=== PATIENT | female | born 1945 | race Two or more races ===

== ENCOUNTER 2025-07-25 07:53 | Emergency (ER) | payer OTHER ==
[~2025-07-25] VITALS: Ht 165.1 cm; Wt 88.5 kg
[2025-07-25] MEDS ORDERED: LOSARTAN-HCTZ1 EACH PO (08:31)
[2025-07-25] MEDS ORDERED: VERAPAMIL ER180 MG PO (08:31)
[2025-07-25] MEDS ORDERED: DICLOFENAC-MIS1 EAC1 PO (08:32)
[2025-07-25] MEDS ORDERED: CHILDREN'S ASPI81 MG (08:32)
[2025-07-25] MEDS ORDERED: ROSUVASTATIN CAL5 MG PO (08:32)
[2025-07-25] MEDS ORDERED: 0.9 % SODIUM CHLORIDE 1,000 ML IV STA (08:50)
[2025-07-25 09:36] LABS: BASO % 0.1 % (0.1-1.2); EOS # 0.01 (0.04-0.54); EOS % 0.1 % (0.7-7.0); LYMPH # 0.47 (1.18-3.74); LYMPH % 4.6 % (19.3-53.1); MEAN PLATELET VOLUME 11.10 fl (9.4-12.4); MONO # 0.25 (0.24-0.82); MONO % 2.4 % (4.7-12.5); NEUT # 9.47 (1.56-6.13); NEUT % 92.4 % (34.0-71.1); RED CELL DISTRIBUTION WIDTH 14.1 % (11.6-14.4)
[2025-07-25 10:08] LABS: ALT/SGPT 34.0 U/L (12-78); AST/SGOT 34.0 U/L (15-37); BILIRUBIN TOTAL 2.82 mg/dL (0.3-1.2); BUN CREA RATIO 14.0 (7.0-25.0); CREATININE SERUM 0.86 mg/dL (0.55-1.02); GFR 63.65; GLOBULINA 3.1 G/DL (2.4-3.5); GLUCOSE FASTING 144.0 mg/dL (65-100); OSMOLALITY SERUM 284.0 MOSM/KG (275-295)
[2025-07-25 10:28] LABS: URINE APPEARANCE Cloudy; URINE BILIRRUBIN Small (NEGATIVE); URINE BLOOD Large; URINE COLOR Dark Yellow; URINE GLUCOSE Negative (NEGATIVE); URINE KETONE Trace (NEGATIVE); URINE LEUKOCYTE Small; URINE NITRATE Positive; URINE UROBILINOGEN 1.0 E.U./dl
[2025-07-25 10:33] LABS: URINE CAST 2.78 uL (0.0-1.40); URINE EPITHELIAL CELLS 13.9 uL (0.0-38.8); URINE RBC 1037.3 uL (0.0-20.8); URINE WBC 1569.0 uL (0.0-23.2)
[2025-07-25 10:43] LABS: URINE BACTERIA > 9821.5 uL (0.0-1933); URINE PROTEIN 300 (NEGATIVE)
[2025-07-25 10:48] LABS: COVID-19 AG NEGATIVE (NEGATIVE)
[2025-07-25] MEDS ORDERED: CEFTRIAXONE SODIUM 2,000 MG VIAL IV STA (10:58)
[2025-07-25] MEDS ORDERED: POTASSIUM BICARBONATE/CIT AC 25 MEQ TABLET.EFF PO STA (11:43)
== END 2025-07-25 13:08 | disposition home or self-care (01) ==
LOC: ER 07:53
PROVIDERS: General Practice
DX: N39.0 Urinary tract infection, site not specified (principal); B34.8 Other viral infections of unspecified site; Z20.822 Contact with and (suspected) exposure to COVID-19; Z88.8 Allergy status to other drugs, medicaments and biological substances
CPT/HCPCS: 36415; 71046; 96365; 96366; 99283; J0696; J7030